=== PATIENT | male | born 1990 | race Caucasian/White ===

== ENCOUNTER 2023-11-26 19:13 | Emergency (ER) | payer OTHER ==
[~2023-11-26] VITALS: Ht 175.3 cm; Wt 90.7 kg
[2023-11-26] MEDS ORDERED: TDAP [DIPH/PERTUSSIS/TET] 0.5 ML VIAL IM ONE (22:25)
[2023-11-26] MEDS: TDAP [DIPH/PERTUSSIS/TET] 0.5 ML VIAL IM ONE (22:30)
[2023-11-26] MEDS ORDERED: SULFAMETH/TRIMETH 800/160 MG 1 UDTAB TABLET ONE (22:38)
[2023-11-26] MEDS ORDERED: CEPHALEXIN MONOHYDRATE 500 MG CAPSULE PO ONE (22:38)
[2023-11-26] MEDS: CEPHALEXIN MONOHYDRATE 500 MG CAPSULE PO ONE (22:41)
[2023-11-26] MEDS: SULFAMETH/TRIMETH 800/160 MG 1 UDTAB TABLET PO ONE (22:41)
[2023-11-26] MEDS ORDERED: LIDOCAINE 0.5% HCL 50 ML VIAL ONE (22:53)
[2023-11-26] MEDS ORDERED: CEPH500C2 PO (23:36)
[2023-11-26] MEDS ORDERED: BACI30OI9 TP (23:36)
[2023-11-26] MEDS ORDERED: SULF1TAB48 PO (23:36)
[2023-11-26] MEDS ORDERED: IBUP-1955 PO (23:36)
[2023-11-26 23:54] VITALS: BP 144/98; TEMP 98; O2SAT 99
== END 2023-11-26 23:54 | disposition home or self-care (01) ==
LOC: ER 19:17
DX: S02.2XXA Fracture of nasal bones, initial encounter for closed fracture (principal); S01.511A Laceration without foreign body of lip, initial encounter; G40.909 Epilepsy, unspecified, not intractable, without status epilepticus; Z79.899 Other long term (current) drug therapy; W17.89XA Other fall from one level to another, initial encounter; Y93.89 Activity, other specified; Y92.89 Other specified places as the place of occurrence of the external cause; Y99.8 Other external cause status
CPT/HCPCS: 12011; 70486; 90471; 90715; 99285; A6403; J3490